=== PATIENT | female | born 1995 | race Caucasian/White ===

== ENCOUNTER 2021-03-31 21:04 | Outpatient (CLI) | payer OTHER ==
[~2021-03-31] VITALS: Ht 152.4 cm; Wt 67.0 kg
[2021-03-31 21:21] VITALS: BP 120/72
[2021-03-31 22:00] LABS: HEMATOCRIT 31.5 % (36.0-47.0); HEMOGLOBIN 10.1 g/dl (12.0-15.5); MEAN CORPUSCULAR HEMOGLOBIN 27.4 pg (27.0-33.0); MEAN CORPUSCULAR HGB CONC 32.1 g/dl (32.0-36.5); MEAN CORPUSCULAR VOLUME 85.6 fl (80.0-96.0); PLATELET COUNT, AUTOMATED 321 10^3/uL (150-450); RED BLOOD COUNT 3.68 10^6/uL (4.00-5.40); WHITE BLOOD COUNT 11.8 10^3/uL (4.0-10.0)
[2021-03-31 22:16] LABS: INR 0.93; PROTHROMBIN TIME 12.7 SECONDS (12.5-14.3)
[2021-03-31 22:17] LABS: PARTIAL THROMBOPLASTIN TIME 24.7 SECONDS (24.2-38.5)
[2021-03-31 22:25] VITALS: BP 120/70
--- NOTE | 2021-03-31 22:34 | IPNPDOC ---
Text Note Date of Service The patient was seen on 03/31/21. NOTE 25 yo at 28+2 weeks gestation presented to L&D after a fall on her abdomen when walking her dog. She had some soreness and cramping after so she came in to be checked. She denies any vaginal bleeding or leakage of fluid. She endorses regular movement. Cramping nearly resolved completely when she got to the hospital. Chaperoned by RN Vitals - VSS, afebrile, normotensive, non tachycardic General - Gravid uterus appropriate size for gestational age. No fundal tenderness. Cervix - cl/thick/high, posterior to digital exam FHR tracing - Cat I and appropriate for gestational age. +accels, no decels. Uterine irritability on toco resolved. Bedside TAUS ( anatomy not assessed): Viable SIUP in transverse presentation. +FCA measured at 140 bpm. DENISSE 15.6 cm. +gross movement. Labs: CBC, coag panel, fibrinogen unremarkable. Patient's cramping nearly resolved completely. cervix closed. No clinical, sonographic, or laboratory evidence of placental abruption. Reassuring status. Patient discharged home with return precautions. All questions answered. 30 minutes of patient care DO LORAINE Dobson,Jenny, I+O VS, Jenny, I+O Laboratory Tests 03/31/21 21:48 Vital Signs Date Time Temp Pulse Resp B/P (MAP) Pulse Ox O2 Delivery O2 Flow Rate FiO2 03/31/21 22:25 97.8 03/31/21 21:21 109 18 120/72 (88) LAUREN BUTLER DO Mar 31, 2021 22:34
== END 2021-03-31 22:30 | disposition home or self-care (01) ==
LOC: M LDO 21:04
PROVIDERS: ATTEND Obstetrics & Gynecology
DX: O9A.213 Injury, poisoning and certain other consequences of external causes complicating pregnancy, third trimester (principal); Z3A.28 28 weeks gestation of pregnancy; S30.1XXA Contusion of abdominal wall, initial encounter; W01.0XXA Fall on same level from slipping, tripping and stumbling without subsequent striking against object, initial encounter; Y93.K1 Activity, walking an animal; Z88.1 Allergy status to other antibiotic agents
CPT/HCPCS: 36415; 85027; 85384; 85610; 85730; G0378; G0463

== ENCOUNTER 2021-06-06 22:29 | Outpatient (CLI) | payer OTHER ==
[~2021-06-06] VITALS: Ht 152.4 cm; Wt 72.3 kg
[2021-06-06 22:54] VITALS: BP 132/81
[2021-06-06] MEDS ORDERED: HOME MED LIST COMPLETE! XX SCH (23:00)
[2021-06-06] MEDS ORDERED: PRENTAB9 PO (23:00)
[2021-06-07 00:38] VITALS: BP 119/69
[2021-06-07] MEDS ORDERED: diphenhydrAMINE 25MG CAP PO ONE (01:30)
--- NOTE | 2021-06-07 01:39 | IPNPDOC ---
Obstetrical Progress Note Date of Service Jun 07, 2021 Subjective 25 yo G1 @ 38W0D BY LMP C/W 9WK US presents for contractions for the lat 8hrs that are ever 4-5 min and are becoming more painful. she denies any vb, lof, or decreased movements. she has no other concerns. o vitals reviewed and wnl sve: f/t/h unchanged after 2hrs of observation FHT: 140, MOD CAPRI, +accels, -decel--cat I TRACING TOCO: Q2-3/ MIN A/P 25 yo G1 @ 38W0D BY LMP C/W 9WK US presents for LABOR CHECK. NO CERVICAL CHANGE NOTED AFTER 2HRS OF OBSERVATION. PATIENT LIKELY VERY EARLY IN LATENT LABOR. WILL DISCHARGE HOME WITH ONE TIME DOSE OF BENADRYL 25MG TO HELP WITH SLEEPING -GIVEN STRICT RETURN PRECAUTIONS Objective Vital Signs Date Time Temp Pulse Resp B/P (MAP) Pulse Ox O2 Delivery O2 Flow Rate FiO2 06/06/21 22:56 97.7 76 16 Room Air 06/06/21 22:54 132/81 (98) Assessment Heart Rate (FHR): 140 Variability: Moderate Heart Rate Tracing: Category I Tocometer Contractions: Yes Sterile Vaginal Examination Dilation: Fingertip Effacement (%): 30% Station: -3 Cervical Consistency: Firm Cervical Position: Posterior Postion/Presentation: Cephalic presentation ROSEANN MILLAN MD Jun 07, 2021 01:39
== END 2021-06-07 01:32 | disposition home or self-care (01) ==
LOC: M LDO 22:29
PROVIDERS: ATTEND Obstetrics & Gynecology
DX: O47.1 False labor at or after 37 completed weeks of gestation (principal); Z3A.38 38 weeks gestation of pregnancy; Z88.1 Allergy status to other antibiotic agents
CPT/HCPCS: 59025; G0378; G0463

== ENCOUNTER 2021-06-23 04:19 | Outpatient (CLI) | payer OTHER ==
[~2021-06-23] VITALS: Ht 154.9 cm; Wt 72.1 kg
[~2021-06-23 04:19] MED LIST: PRENTAB9 PO
[2021-06-23] MEDS ORDERED: CALC500C16 PO (04:53)
[2021-06-23] MEDS ORDERED: TUMS500C PO (04:53)
[2021-06-23] MEDS ORDERED: IRON65TA2 PO (04:53)
[2021-06-23] MEDS ORDERED: HOME MED LIST COMPLETE! XX SCH (04:55)
--- NOTE | 2021-06-23 06:02 | IPNPDOC ---
Text Note Date of Service The patient was seen on 06/23/21. NOTE Mandi Stover is a 25yo at 40+2 presenting for contractions. They started last evening and have been occurring every 6-7 minutes. She denies vaginal bleeding, loss of fluid. Endorses positive movement. Her cervix was 1cm two weeks ago per patient. This has been uncomplicated. Meds: PNV, iron, calcium Allergies: cipro - hives GBS negative Vitals reviewed and within normal limits a&o x3 nonlabored breathing abd soft, nontender, gravid ext no edema cervix exam (by RN) -/-2 a/p: as above in early labor at term. Discussed with patient that it is safe to return home during early labor. Return for vaginal bleeding, loss of fluid, increase in contraction pain/frequency or decreased movement. She agrees with the plan. DO MOI Troy BRADLEY J. DO Jun 23, 2021 06:02
[2021-06-23] MEDS ORDERED: ACET-907 PO (17:13)
== END 2021-06-23 05:50 | disposition home or self-care (01) ==
LOC: M LDO 04:19
PROVIDERS: ATTEND Obstetrics & Gynecology
DX: O48.0 Post-term pregnancy (principal); Z3A.40 40 weeks gestation of pregnancy; Z88.1 Allergy status to other antibiotic agents
CPT/HCPCS: 59025; G0378; G0463

== ENCOUNTER 2021-06-23 17:03 | Inpatient (IN) | payer OTHER ==
[~2021-06-23] VITALS: Ht 152.4 cm; Wt 71.4 kg
[2021-06-23] VITALS (20 sets, daily range): BP systolic 104–159; BP diastolic 53–96
[~2021-06-23 17:03] MED LIST changes: +CALC500C16 PO; +IRON65TA2 PO; +TUMS500C PO
[2021-06-23] MEDS ORDERED: ACET-907 PO (17:13)
[2021-06-23] MEDS ORDERED: HOME MED LIST COMPLETE! XX SCH (17:15)
[2021-06-23] MEDS ORDERED: LACTATED RINGER'S 1000 ML IV STA (17:44)
[2021-06-23] MEDS ORDERED: LR 1,000 ML IV SCH (17:45)
[2021-06-23] MEDS ORDERED: METHYLERGONOVINE MALEATE 0.2 MG/ML VIAL (J2210) IM PRN (17:45)
[2021-06-23] MEDS ORDERED: OXYTOCIN DRIP 30 UNITS in IV 1 EA IV PRN (17:45)
[2021-06-23] MEDS ORDERED: TRANEXAMIC ACID INJection 1,000 MG in NS 100 ML IV PRN (17:45)
[2021-06-23] MEDS ORDERED: LIDOCAINE 1% MDV 20ML VIAL INFIL PRN (17:45)
--- NOTE | 2021-06-23 18:41 | HPEPDOC ---
Obstetrical History & Physical General Date of Admission Jun 23, 2021 at 17:32 History of Present Illness 25 yo at 40+2 weeks gestation by LMP of [id number] c/w 9+5 week US on 2020 presented to L&D with the complaint of regular, painful contractions. She denies any bleeding or leakage of fluid. She endorses regular movement. Chief Complaint: Contractions, term Information Provided By: Patient Age: 25 : 1 Term: 0 Pre-term: 0 Abortions: 0 Livin Care Care: Good Care Dating Final EDC: Jun 21, 2021 Final EDC for Daily Update: Jun 21, 2021 Final EDC by: LMP (LMP of [id number] c/w 9+5 week US on [id number] set JAYA of [id number]) Antepartum Course Diagnos(e)s Exercise induced asthma Varicella Non immune Elevated early 1hr GTT ---> normal 3 hr Past Medical History Past Obstetrical History : Past Obstetrical History: Primg[employer] History: No pertinent history Past Medical History Medical History Exercise induced asthma Surgical History: Denies/None Family History Significant Family History: No pertinent family hx Social History Marital Status: Family situation: Spouse/partner home Psychosocial History: No pertinent psych hx * Smoker: non-smoker Alcohol: Denies Drugs: denies Imunizations Tdap status: current Influenza Status: needs Allergies Coded Allergies: ciprofloxacin (Verified Allergy, Mild, RASH, 03/31/21) Medications Scheduled Ferrous Sulfate (Iron) 325 Mg Tablet, 1 TAB PO BID No.137/Iron/Folic Acd ( Vitamin Tablet) 1 Each Tablet, 1 TAB PO DAILY Scheduled PRN Acetaminophen (Tylenol) 325 Mg Tablet, 325 MG PO Q6HP PRN for PAIN LEVEL 6-10 Calcium Carbonate (Tums) 200 Mg Tab.chew, 1,000 MG PO Q4DP PRN for HEARTBURN Physical Examination Physical Examination GENERAL: Alert and oriented times three. ABDOMEN: Gravid and non-tender to touch. FETUS: Is vertex (VTX) by sterile vaginal examination (SVE) EXTREMITIES: No edema. Laboratory Data 24H LABS Laboratory Tests 2 06/23/21 17:44: Serology Scanned Report Hepatitis B Testing Urine Culture: No Growth, Contaminated Pertinent Laboratoy Data Blood Type: A+ RBC Antibody Screen: Negative HIV: Negative Hepatitis B: Negative Hepatitis C: Unknown Rapid Plasma Reagin: Nonreactive Rubella: Immune Varicella: Nonreactive Chlamydia/Gonorrhea: Negative Group B Streptococcus: Negative Quad Screen Test: Unknown (Maternity 21 --> low risk) Cystic Fibrosis: Unknown Glucose Tolerance Test: 143 (Passed 3hr GTT twice ---> 108/100/83/80 and 112/97/94/72) Anatomy Ultrasound Placenta Location: Posterior Normal Anatomy: Yes Placenta Previa: No Steroid Therapy Steroid Therapy: No Vaginal Examination Dilation: 4 cm Effacement: 90% Station: -2 Cervical Consistency: Soft Cervical Position: Middle Presentation: Cephalic presentation Position: Vertex (occiput) Assessment Heart Rate (FHR): 130 Variability: Moderate Accelerations: Positive Decelerations: None Tocometer Contractions: Yes Frequency: regular Duration: greater than 60 seconds Strength: palpated as strong Assessment/Plan Assessment 25 yo at 40+2 weeks gestation presented to L&D in active labor. Plan Admit to L&D for expectant management of labor. Will augment as clinically indicated. Apply IV fluids. Labs per L&D protocol. GBS negative. Clear liquid diet. Patient may have epidural if desired. Anticipate . Labor and Delivery Counseling Vaginal / Operative vaginal delivery / C section counseling We will deliver your baby through the vagina with possible assistance of forceps or vacuum device if needed for maternal or indications. Forceps and vacuum are devices that can assist with vaginal delivery when normal pushing efforts cannot achieve delivery on their own or when delivery is needed in an emergency for baby's well-being. Medications may be required to induce or augment (help) your labor in order to achieve a vaginal delivery. An episiotomy may be required to help your baby to delivery vaginally. You may also require repair of any lacerations or tears of your vagina or vulva that are caused by delivery. In shellie e cases, emergencies can occur that require an emergency section delivery so quickly that there may not be enough time to stop and complete consent forms for section. Understand that if this occurs, your providers will discuss the need for a section with you before they proceed with surgery. section is the delivery of your baby through an incision in your abdomen. In some situations, section may be safer to mom and baby than continuing labor and is only performed when clinically indicated. Risks of vaginal delivery include but are not limited to: Bleeding, infection, injury to the vagina, pelvic structures, injury to baby, damage to the uterus, reactions to anesthesia, uterine rupture, risk of hysterectomy for life threatening bleeding, or . Medications used to induce or augment labor may increase your risk for infection, uterine tachysystole, uterine rupture, heart rate abnormalities, need for emergency delivery or possible hysterectomy, and hemorrhage. Additional risks for use of forceps and vacuum include: increased risk of perineal and vaginal lacerations, risk of urinary or bowel incontinence, increased risk of injury to baby with bruising, scratches, hematomas on the head, or intracranial bleeding. Mandi appears to understand these risks and elects to proceed with her labor at this location.. She also consents to a blood transfusion if necessary. All patient and questions answered. Lauren Hicks DO, LAUREN BHATT DO Jun 23, 2021 18:41
[2021-06-23 18:54] LABS: HEMATOCRIT 34.1 % (36.0-47.0); HEMOGLOBIN 10.5 g/dl (12.0-15.5); MEAN CORPUSCULAR HEMOGLOBIN 23.3 pg (27.0-33.0); MEAN CORPUSCULAR HGB CONC 30.8 g/dl (32.0-36.5); MEAN CORPUSCULAR VOLUME 75.8 fl (80.0-96.0); PLATELET COUNT, AUTOMATED 410 10^3/uL (150-450); WHITE BLOOD COUNT 16.8 10^3/uL (4.0-10.0)
[2021-06-23] MEDS ORDERED: FENTANYL 2MCG/ML ROPIVACAINE 0.2% IN 0.9% NACL 100ML IVBAG As Ordered ONE (19:18)
[2021-06-23] MEDS ORDERED: ePHEDrine SULFATE 25 MG/5 ML(5MG/ML) SYRINGE IV PRN (19:20)
[2021-06-23] MEDS ORDERED: FENTANYL/ROPIVACAINE/NACL BAG 100 ML EPIDURAL SCH (19:20)
[2021-06-23] MEDS ORDERED: EPIDURAL COMMENT XX SCH (19:20)
[2021-06-23] MEDS ORDERED: diphenhydrAMINE 50MG/ML VIAL (J1200) IV PRN (19:20)
[2021-06-23] MEDS ORDERED: NALOXONE INJ 0.4MG/1ML VIAL (J2310 PER 1MG) IV PRN (19:20)
[2021-06-23] MEDS ORDERED: LACTATED RINGER'S 1000 ML IV PRN (19:20)
[2021-06-23] MEDS ORDERED: EPIDURAL/PCA KEYS XX PRN (19:20)
[2021-06-23] MEDS ORDERED: REFRIGERATOR IV KEYS XX PRN (19:20)
[2021-06-23] MEDS ORDERED: ONDANSETRON 4MG/2ML VIAL IV PRN (19:20)
--- NOTE | 2021-06-23 23:06 | IPNPDOC ---
Text Note Date of Service The patient was seen on 06/23/21. NOTE Mandi is more comfortable with her epidural in place. Though she endorses intermittent pelvic pressure. Chaperoned by RN Cervix: /1. AROM performed with light meconium stained fluid. FHR Tracing - Cat II due to intermittent variable and late decels, but also +accels and moderate variability. Overall reassuring. Ctx regular. Mandi is progressing well on her own power. Anticipate beginning of 2nd stage soon. Kurt VS,Jenny, I+O VSJenny, I+O Laboratory Tests 06/23/21 18:19 Vital Signs Date Time Temp Pulse Resp B/P (MAP) Pulse Ox O2 Delivery O2 Flow Rate FiO2 06/23/21 21:11 98.4 92 18 118/75 (89) 06/23/21 17:21 100 LAUREN BUTLER DO Jun 23, 2021 23:06
[2021-06-24] VITALS (8 sets, daily range): BP systolic 109–144; BP diastolic 63–80
[2021-06-24] MEDS ORDERED: DIBUCAINE 1% OINTMENT 30GM TOP PRN (00:50)
[2021-06-24] MEDS ORDERED: ONDANSETRON 4MG/2ML VIAL IV PRN (00:50)
[2021-06-24] MEDS ORDERED: ACETAMINOPHEN TAB 650MG DOSE (2X325MG) PO PRN (00:50)
[2021-06-24] MEDS ORDERED: IBUPROFEN 800 MG TAB PO PRN (00:50)
[2021-06-24] MEDS ORDERED: MEASLES,MUMPS,RUBELLA VACCINE INJ (MMR-II) (90707) SC SCH (00:50)
[2021-06-24] MEDS ORDERED: IBUPROFEN 600MG TAB PO PRN (00:50)
[2021-06-24] MEDS ORDERED: RHOGAM 300 MCG (1500 IU) INJ (J2790) IM SCH (00:50)
[2021-06-24] MEDS ORDERED: DOCUSATE SODIUM 100MG CAPSULE PO PRN (00:50)
--- NOTE | 2021-06-24 00:57 | DNPDOC ---
[facility] Delivery Note Delivery Note DATE OF DELIVERY: [id number] at ~0030 PREDELIVERY DIAGNOSIS: 40+3 weeks gestation and active labor POST DELIVERY DIAGNOSIS: Delivered. PROCEDURE: Spontaneous vaginal delivery YOUTH PROGRAM DIRECTOR: Dr. Hicks ANESTHESIA: Neuraxial (epidural) ESTIMATED BLOOD LOSS: 150 ml FINDINGS: 6 lbs 12oz female , Score 8/8 DELIVERY SUMMARY: Mandi progressed quickly after AROM into 2nd stage. She began pushing and I was called to the room for delivery. NICU was notified due to the thick meconium and deep decelerations with pushing. With excellent effort over about 90 minutes of pushing her infant delivered. Presentation was ANTONETTE with restitution to LOT. The right anterior shoulder delivered with gentle traction followed easily by the remainder of the body. The infant was dried and stimulated on the field and a bulb suction was used. The infant had poor tone initially so I clamped and cut the three vessel cord and brought the baby over to the warmer under care of the team. Third stage was completed with gentle traction on on the cord and it was productive of an intact placenta. The uterus was firmed with massage and pitocin was administered IV bolus. Inspection of the cervix, vagina, labia, and perineum revealed a small, vaginal floor laceration. This was repaired with 3-0 vicryl suture in the usual fashion . There was excellent hemostasis and cosmesis after the repair. The fundus was palpated again and was firm. Sponge, instrument, and needle counts were correct X2. Mother and infant stable when I left the room. DO CARRIE Dobson CHRISTOPHER J. DO Jun 24, 2021 00:57
[2021-06-24 01:30] LABS: CORD GAS ABE V -5.2; CORD GAS HCO3 V 20.5 MEQ/L; CORD GAS O2 SAT V 27.4 %; CORD GAS PCO2 V 40.7 mmHg; CORD GAS PH V 7.321 UNITS; CORD GAS PO2 V 15.4 mmHg; CORD GAS SBC V 18.6 MEQ/L; CORD GAS TCO2 V 21.8 MEQ/L
[2021-06-24 01:32] LABS: CORD GAS ABE A -5.5; CORD GAS HCO3 A 20.9 MEQ/L; CORD GAS O2 SAT A 16.8 %; CORD GAS PH A 7.295 UNITS; CORD GAS PO2 A 11.9 mmHg; CORD GAS SBC A 18.1 MEQ/L; CORD GAS TCO2 A 22.3 MEQ/L
[2021-06-24] MEDS: PRENATAL VITAMINS CHEWABLE TABLET PO SCH (08:44)
[2021-06-24] MEDS ORDERED: INFLUENZA QUADRIVALENT PF VACCINE 0.5ML SYRINGE IM ONE (09:00)
[2021-06-24] MEDS: ACETAMINOPHEN 500 MG TAB PO PRN (22:12)
--- NOTE | 2021-06-25 04:04 | IPNPDOC ---
Progress Note Date of Service: Jun 25, 2021 Progress Note SUBJECT: Ms. Stover is a 25yo PPD2 after a vaginal delivery, Mandi progressed quickly after AROM into 2nd stage, 6 lbs 12oz female infant, Score 8/8, EBL 150cc. She has been ambulating, voiding spontaneously without issue and tolerating regular diet. She has decided not to breastfeed. Reports lochia is less than a normal period. Patient is ambulating well. Denies any pain. Voiding and passing flatus without difficulty. OBJECTIVE: VITAL SIGNS: Within normal limits, afebrile. Alert and oriented times three. No increased wob Heart rate: non-tachy Abdomen: Fundus firm at U-2. Soft, NTTP. [Minimal] lochia per pt ASSESSMENT: Ms. Stover is a 25yo PPD2 after a vaginal delivery, Mandi progressed quickly after AROM into 2nd stage, 6 lbs 12oz female , Score 8/8, EBL 150cc. Vitals within normal limits, afebrile, hemodynamically stable with no evidence of infection. PLAN: 1. Discharge to home today. 2. Tylenol and Motrin for pain. 3. Encourage breast feeding and ambulation. 4. She has decided not to breastfeed and plans on interval combined oral contraception. 5. Routine PP visit in 6 weeks in clinic. 6. Discussed return precautions at length and activity limitations (pelvic rest). 7. Encouraged varicella vaccination. VS, I&O, 24H, Fishbone Vital Signs/I&O Vital Signs Date Time Temp Pulse Resp B/P (MAP) Pulse Ox O2 Delivery O2 Flow Rate FiO2 06/24/21 17:51 96.2 76 17 121/63 (82) 99 Room Air ALIYA ALBERTS DO Jun 25, 2021 04:04
--- NOTE | 2021-06-25 04:05 | OBDS ---
[facility] Obstetrical Discharge Sum. A/P, Post Course List any complications Ms. Stover is a 25yo PPD2 after a vaginal delivery, Mandi progressed quickly after AROM into 2nd stage, 6 lbs 12oz female , Score 8/8, EBL 150cc. She has been ambulating, voiding spontaneously without issue and tolerating regular diet. She has decided not to breastfeed. Reports lochia is less than a normal period. Patient is ambulating well. Denies any pain. Voiding and passing flatus without difficulty. Vitals within normal limits, afebrile, hemodynamically stable with no evidence of infection. PLAN: 1. Discharge to home today. 2. Tylenol and Motrin for pain. 3. Encourage breast feeding and ambulation. 4. She has decided not to breastfeed and plans for interval combined oral contraception. 5. Routine PP visit in 6 weeks in clinic. 6. Discussed return precautions at length and activity limitations (pelvic rest). 7. Encouraged varicella vaccination. ALIYA ALBERTS DO Jun 25, 2021 04:05
[2021-06-25 05:54] VITALS: BP 133/80
[2021-06-25] MEDS: PRENATAL VITAMINS CHEWABLE TABLET PO SCH (09:17)
[2021-06-25] MEDS: ACETAMINOPHEN 500 MG TAB PO PRN (14:44)
== END 2021-06-25 16:00 | disposition home or self-care (01) | DRG 807 ==
LOC: M LDO 17:03 → M LDI 17:32 → M OBS 06-24 02:46
PROVIDERS: ADMIT Obstetrics & Gynecology; ATTEND Obstetrics & Gynecology
PROC: 10E0XZZ Delivery of Products of Conception, External Approach (ICD-10-PCS; principal; 2021-06-23)
PROC: 10907ZC Drainage of Amniotic Fluid, Therapeutic from Products of Conception, Via Natural or Artificial Opening (ICD-10-PCS; 2021-06-23)
PROC: 0HQ9XZZ Repair Perineum Skin, External Approach (ICD-10-PCS; 2021-06-23)
DX: O48.0 Post-term pregnancy (principal); Z37.0 Single live birth; Z3A.40 40 weeks gestation of pregnancy; O77.0 Labor and delivery complicated by meconium in amniotic fluid; O76 Abnormality in fetal heart rate and rhythm complicating labor and delivery; O70.0 First degree perineal laceration during delivery